=== PATIENT | female | born 1950 | race Caucasian/White ===

== ENCOUNTER 2022-06-06 12:59 | Emergency (ER) | payer MEDICARE, BC ==
[~2022-06-06] VITALS: Ht 154.9 cm; Wt 50.0 kg
[2022-06-06 13:51] VITALS: BP 164/68
[2022-06-06] MEDS ORDERED: ketorolac trometh inj. 60 MG/2 ML VIAL IM ONE (17:50)
--- NOTE | 2022-06-06 19:54 | NUR ---
SPOKE WITH RADIOLOGIST REGARDING POSSIBLE RESULTS OF HEAD CT AND CERVICAL SPINE CT. RADIOLOGIST STATES THAT HE WILL FAX RESULTS TO ED WHEN THEY ARE AVAILABLE.
[2022-06-06] MEDS ORDERED: IBUP-1986 PO (20:24)
[2022-06-06] MEDS ORDERED: CYCL-1 PO (20:24)
[2022-06-06] MEDS ORDERED: cyclobenzaprine 10mg tablet PO ONE (20:25)
== END 2022-06-06 21:02 | disposition home or self-care (01) ==
LOC: ER 13:02
DX: S09.90XA Unspecified injury of head, initial encounter (principal); S19.9XXA Unspecified injury of neck, initial encounter; Z88.2 Allergy status to sulfonamides; Z87.891 Personal history of nicotine dependence; V49.49XA Driver injured in collision with other motor vehicles in traffic accident, initial encounter; Y93.89 Activity, other specified; Y92.89 Other specified places as the place of occurrence of the external cause; Y99.8 Other external cause status
CPT/HCPCS: 96372; 99283; J1885; L0172